=== PATIENT | female | born 1955 | race Caucasian/White ===

== ENCOUNTER 2021-10-11 23:00 | Emergency (ER) | payer MEDICARE ==
[2021-10-11] MEDS ORDERED: Sodium Chloride 0.9% 1,000 ML IV ONE (23:51)
[2021-10-11] MEDS ORDERED: Ondansetron 4 MG/2 ML SDV IVPUSH ONE (23:51)
[2021-10-11] MEDS ORDERED: Loperamide 2 MG Cap PO STA (23:52)
== END 2021-10-12 02:30 | disposition home or self-care (01) ==
LOC: JD.ED 23:00
DX: K52.9 Noninfective gastroenteritis and colitis, unspecified (principal); Z72.0 Tobacco use
CPT/HCPCS: 36415; 80053; 81001; 83735; 85007; 85027; 96374; 99284; A9270; J2405; J7030